=== PATIENT | male | born 1975 | race Caucasian/White ===

== ENCOUNTER 2016-08-29 08:48 | Emergency (ER) | payer BC, OTHER ==
[2016-08-29 08:53] VITALS: BP 148/97; PULSE 122; RESP 24; TEMP 98.2; O2SAT 97
[2016-08-29] MEDS ORDERED: SODIUM CHLOR 0.9% 1000 ML INJ 1,000 ML IV ONE (09:15)
[2016-08-29] MEDS ORDERED: TETANUS/DIPHTHERIA TOXOID ADULT 0.5 ML VIAL IM ONE (09:15)
[2016-08-29] MEDS ORDERED: LORazepam 2 MG/ML VIAL IV PUSH ONE (09:15)
[2016-08-29 09:30] VITALS: BP 146/81; PULSE 104; RESP 16; O2SAT 98
--- NOTE | 2016-08-29 09:43 | RADRPT ---
EXAM DATE/TIME: 08/29/2016 09:27 [facility] COMPARISON: No previous studies available for comparison. INDICATIONS : Trauma. RADIATION DOSE: 56.35 CTDIvol (mGy) MEDICAL HISTORY : None SURGICAL HISTORY : None. ENCOUNTER: Initial ACUITY: 1 day PAIN SCALE: 4/10 LOCATION: cranial TECHNIQUE: Multiple contiguous axial images were obtained of the head. Using automated exposure control and adj ustment of the mA and/or kV according to patient size, radiation dose was kept as low as reasonably a chievable to obtain optimal diagnostic quality images. DICOM format image data is available electro nically for review and comparison. FINDINGS: Prominent right frontal scalp laceration is identified. This extends to the skull without obvious und erlying skull fracture. The brain is normal in appearance. No signs of intracranial hemorrhage, acute infarct, or mass. A right orbital floor fracture is difficult to exclude. Maxillofacial CT recommend ed. CONCLUSION: Normal appearance of the brain. Large right frontal scalp laceration. Possible right orbital floor fr acture. CT maxillofacial bones recommended. Navid Cheema MD on August 29, 2016 at 9:39 Board Certified Radiologist. This report was verified electronically.
--- NOTE | 2016-08-29 09:48 | RADRPT ---
EXAM DATE/TIME: 08/29/2016 09:27 [facility] COMPARISON: No previous studies available for comparison. INDICATIONS : Trauma. RADIATION DOSE: 21.05 CTDIvol (mGy) MEDICAL HISTORY : None SURGICAL HISTORY : None. ENCOUNTER: Initial ACUITY: 1 day PAIN SCALE: 4/10 LOCATION: Bilateral neck TECHNIQUE: Volumetric scanning of the cervical spine was performed. Multiplanar reconstructions in the sagittal, coronal and oblique axial planes were performed. Using automated exposure control and adjustment o f the mA and/or kV according to patient size, radiation dose was kept as low as reasonably achievable to obtain optimal diagnostic quality images. DICOM format image data is available electronically f or review and comparison. FINDINGS: VERTEBRAE: Normal vertebral body height. ALIGNMENT: No evidence of subluxation. C2-C3: The bony spinal canal is normal in size. No evidence of disc bulge or herniation. The neural forami na are bilaterally patent. C3-C4: The bony spinal canal is normal in size. No evidence of disc bulge or herniation. The neural forami na are bilaterally patent. C4-C5: The bony spinal canal is normal in size. No evidence of disc bulge or herniation. The neural forami na are bilaterally patent. C5-C6: The bony spinal canal is normal in size. No evidence of disc bulge or herniation. The neural forami na are bilaterally patent. C6-C7: The bony spinal canal is normal in size. No evidence of disc bulge or herniation. The neural forami na are bilaterally patent. C7-T1: The bony spinal canal is normal in size. No evidence of disc bulge or herniation. The neural forami na are bilaterally patent. CONCLUSION: Normal examination. Navid Cheema MD on August 29, 2016 at 9:45 Board Certified Radiologist. This report was verified electronically.
[2016-08-29] MEDS ORDERED: BUPIVACAINE HCL PF 0.5% 30 ML VIAL INFIL ONE (10:15)
[2016-08-29] MEDS ORDERED: LIDOCAINE 1%/EPINEPHrine 1:100,000 SOLN 20 ML VIAL INFIL ONE (10:15)
[2016-08-29 10:30] VITALS: BP 132/87; PULSE 78; RESP 18; O2SAT 98
--- NOTE | 2016-08-29 10:54 | PD ---
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 He sustained a laceration to the top of his head. He says he lost "a ton of blood" in the field. He is reporting a headache. He denies any other injuries. He says the beam didn't hit his face only the top of his head. He's had a tetanus shot within the last year. PFSH Past Medical History GERD: Yes Tetanus Vaccination: < 5 Years Past Surgical History Surgical History: No Previous Surgery Social History Alcohol Use: Yes (occ) Tobacco Use: Yes (PPD) Substance Use: No Allergies-Medications (Allergen,Severity, Reaction): Coded Allergies: No Known Allergies (Unverified , 08/29/16) Reported Meds & Prescriptions Reported Meds & Active Scripts Active No Active Prescriptions or Reported Medications Review of Systems Except as stated in HPI: all other systems reviewed are Neg Physical Exam Narrative GENERAL:Well appearing, no acute distress SKIN: 10 cm laceration on the anterior scalp with cranium exposed and a tear in the galea. smaller 2 cm laceration lateral to the large laceration. HEAD: Atraumatic. Normocephalic. EYES: Pupils equal and round. No injection or drainage. ENT: Moist mucous membranes. No focal tenderness over the right orbital floor with no ecchymoses or bruising NECK: Trachea midline. Midline cervical spine tenderness CARDIOVASCULAR: Regular rate and rhythm. No murmur appreciated. RESPIRATORY: Clear to auscultation. Breath sounds equal bilaterally. GASTROINTESTINAL: Abdomen soft, non-tender, nondistended. MUSCULOSKELETAL: No obvious deformities. NEUROLOGICAL: Awake and alert. No obvious cranial nerve deficits. Moving all extremities. PSYCHIATRIC: Appropriate mood and affect; insight and judgment normal. Data Data Last Documented VS Vital Signs Date Time Temp Pulse Resp B/P Pulse Ox O2 Delivery O2 Flow Rate FiO2 08/29/16 08:53 98.2 122 24 148/[address] Brain W/O Iv Contrast(Rout) (08/29/16 ) Ct Cerv Spine W/O Contrast (08/29/16 ) ^ Insert Iv (08/29/16 09:09) Sodium Chlor 0.9% 1000 Ml Inj (Ns 1000 M (08/29/16 09:15) Tetanus/Diphtheria Tox Adult (Tetanus/Di (08/29/16 09:15) Lorazepam Inj (Ativan Inj) (08/29/16 09:15) Lidocai-Epi 1%-1:100,000 Inj (Xylocaine- (08/29/16 10:15) Bupivacaine Pf 0.5% Inj (Marcaine Pf 0.5 (08/29/16 10:15) MDM Medical Decision Making Medical Screen Exam Complete: Yes Emergency Medical Condition: Yes Interpretation(s) afebrile, tachycardia, hypertensive Last [address] 08/29/16 0000 Signed Impressions: Service Date/Time: Monday, August 29, 2016 09:27 - CONCLUSION: Normal appearance of the brain. Large right frontal scalp laceration. Possible right orbital floor fracture. CT maxillofacial bones recommended. Navid Cheema MD Cervical Spine CT 08/29/16 0000 Signed Impressions: Service Date/Time: Monday, August 29, 2016 09:27 - CONCLUSION: Normal examination. Navid Cheema MD Differential Diagnosis Subdural hematoma, epidural hematoma, laceration, cervical spine fracture Narrative Course This is a 41-year-old male who was hit in the head with a beam at work. He has a significant laceration to the scalp With exposed cranium and a tear in the galea. 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 CT was negative for skull fracture or intracranial hemorrhage and cervical spine CT was reassuring. On CT there was some concern for a possible orbital floor fracture on the right. I went back to reexamine the patient and he has no focal tenderness or bruising over the orbit. He has full painless extraocular movements. If this patient has an orbital floor fracture I doubt that it surgical. He is completely asymptomatic. I don't think it is necessary to put him through further radiation at this time. Patient will be discharged home. Diagnosis Primary Impression: Scalp laceration Qualified Code: S01.01XA - Scalp laceration, initial encounter Patient Instructions: General Instructions Additional Instructions: If you develop fevers, redness, swelling, or discharge from your wound return to the emergency room. Keep your wound dry for 24 hours. After that time, wash gently with warm soap and water. Do not use peroxide. Do not soak in baths or go swimming. Have your irish removed in 10 - 14 days. Med/Other Pt SpecificInfo: No Change to Meds Scripts No Active Prescriptions or Reported Meds Disposition: 01 DISCHARGE HOME Condition: Stable Christa Martinez MD Aug 29, 2016 10:54
--- NOTE | 2016-08-29 10:55 | PD ---
Physical Exam Date Seen by Provider: Aug 29, 2016 Time Seen by Provider: 10:48 Narrative I was asked to see this patient by Dr. Martinez for the repair of a large laceration to the anterior central scalp from a workplace injury. Please see her note for full history and physical. Data Data Last Documented VS Vital Signs Date Time Temp Pulse Resp B/P Pulse Ox O2 Delivery O2 Flow Rate FiO2 08/29/16 08:53 98.2 122 24 148/[address] Brain W/O Iv Contrast(Rout) (08/29/16 ) Ct Cerv Spine W/O Contrast (08/29/16 ) ^ Insert Iv (08/29/16 09:09) Sodium Chlor 0.9% 1000 Ml Inj (Ns 1000 M (08/29/16 09:15) Tetanus/Diphtheria Tox Adult (Tetanus/Di (08/29/16 09:15) Lorazepam Inj (Ativan Inj) (08/29/16 09:15) Lidocai-Epi 1%-1:100,000 Inj (Xylocaine- (08/29/16 10:15) Bupivacaine Pf 0.5% Inj (Marcaine Pf 0.5 (08/29/16 10:15) MDM Medical Record Reviewed: Yes Supervised Visit with OSCAR: Yes Procedures Procedure Narrative LACERATION #1 LOCATION: Upper anterior scalp LENGTH: 10 cm NUMBER OF STITCHES/IRISH: 4 deep 4-0 Vicryl interrupted subcutaneous simple sutures, 32 irish REPAIR: The area of the laceration was prepped with Betadine and sterilely draped. The laceration was infiltrated with 1% lidocaine with epi mixed with bupivacaine 0.5% in a 50-50 mixture.. The wound was copiously irrigated and explored without evidence of foreign body, tendon injury or neurovascular injury. The wound was closed using 4-0 Vicryl deep subcutaneous and 32 irish. This was a double layer repair. A sterile dressing was applied. The patient was advised to keep the dressing clean and dry. Patient tolerated the procedure well. [place] should remain for 2 weeks. LACERATION LOCATION: Left anterior scalp LENGTH: 2 cm NUMBER OF STITCHES/IRISH: 6 irish REPAIR: The area of the laceration was prepped with Betadine and sterilely draped. The laceration was infiltrated with 4 mL 1% lidocaine with epi/0.5% bupivacaine 50-50 medically. The wound was copiously irrigated and explored without evidence of foreign body, tendon injury or neurovascular injury. The wound was closed using 6 irish. This was a single layer repair. A sterile dressing was applied. The patient was advised to keep the dressing clean and dry. Patient tolerated the procedure well. Scripts No Active Prescriptions or Reported Meds Condition: Werner Fritz Aug 29, 2016 10:55
== END 2016-08-29 11:22 | disposition home or self-care (01) ==
LOC: NEPE 08:48
DX: S01.01XA Laceration without foreign body of scalp, initial encounter (principal); W22.8XXA Striking against or struck by other objects, initial encounter; Y93.H3 Activity, building and construction; Y99.0 Civilian activity done for income or pay
CPT/HCPCS: 12001; 12034; 70450; 72125; 96361; 96374; 99285; J2060; J7030